=== PATIENT | female | born 1985 | race Caucasian/White ===

== ENCOUNTER 2023-02-27 08:16 | Inpatient (IN) | payer BC ==
[~2023-02-27] VITALS: Ht 162.6 cm; Wt 115.5 kg
[2023-04-08] MEDS ORDERED: Scopolamine 1 MG Delivered 3-Day PATCH TD SCH (12:00)
[2023-04-08] MEDS ORDERED: Metoclopramide 10 MG TAB PO SCH (12:00)
[2023-04-08] MEDS ORDERED: Meclizine 25 MG TAB PO SCH (12:00)
[2023-04-09] VITALS (15 sets, daily range): BP systolic 111–139; BP diastolic 69–83; PULSE 64–82; TEMP 97.3–99.3
[2023-04-09] MEDS ORDERED: LR 1,000 ML IV SCH (06:00)
[2023-04-09] MEDS ORDERED: QULIPTA60 MG PO (06:02)
[2023-04-09] MEDS ORDERED: Ondansetron 4 MG/2 ML VIAL ONE (06:42)
[2023-04-09] MEDS ORDERED: dexAMETHasone 10 MG/ML VIAL ONE (06:42)
[2023-04-09] MEDS ORDERED: Lidocaine PF 2% (20 MG/ML) 5 ML VIAL ONE (06:42)
[2023-04-09] MEDS ORDERED: Rocuronium 50 MG/5 ML Multi-Dose VIAL ONE ×3 (06:43→07:59)
[2023-04-09] MEDS ORDERED: Succinylcholine PF 100 MG/5 ML SYRINGE/POLY AMP IV ONE (06:43)
[2023-04-09] MEDS ORDERED: fentaNYL 50 MCG/ML 2 ML VIAL ONE ×2 (06:44→09:49)
[2023-04-09] MEDS ORDERED: Ondansetron 4 MG/2 ML VIAL IV PRN ×2 (08:00→10:00)
[2023-04-09] MEDS ORDERED: fentaNYL 50 MCG/ML 2 ML VIAL IV PRN (08:00)
[2023-04-09] MEDS ORDERED: HYDROmorphone 2 MG/1 ML VIAL IV PRN (08:00)
[2023-04-09] MEDS ORDERED: oxyCODONE Oral Soln 5 MG/5 ML UD PO PRN (10:00)
[2023-04-09] MEDS ORDERED: HYDROmorphone 0.5 MG/0.5 ML SYRINGE IV PRN (10:00)
[2023-04-09] MEDS ORDERED: D5 1/2 NS & 20 mEq KCl 1,000 ML IV SCH (10:00)
[2023-04-09] MEDS ORDERED: diphenhydrAMINE 25 MG CAP PO PRN (10:00)
[2023-04-09] MEDS ORDERED: Naloxone 0.4 MG/ML VIAL IV PRN (10:00)
[2023-04-09] MEDS ORDERED: diphenhydrAMINE 50 MG/ML 1 ML VIAL IV PRN (10:00)
[2023-04-09] MEDS ORDERED: Ketorolac 30 MG/ML VIAL IV PRN (10:15)
[2023-04-09] MEDS ORDERED: droPERidol 2.5 MG/ML 2 ML VIAL IV PRN ×2 (10:15)
[2023-04-09] MEDS ORDERED: Acetaminophen Oral Susp 325 MG/10.15 ML UD PO SCH (10:49)
--- NOTE | 2023-04-09 10:55 | NUR ---
REPORT RECEIVED FROM PACU. PT UP TO FLOOR AT THIS TIME. PT VERY DROWSY, VITALS STABLE, COMPLAINING OF NO PAIN, BANDAIDS TO 5 LAP SITES CLEAN AND DRY, MIGUEL ÁNGEL DRAIN INTACT AND DRAINING SANGINOUS. FAMILY AT BEDSIDE. PT REMAINS ON 2L O2 AND NPO. WILL CONTINUE TO MONTIOR.
--- NOTE | 2023-04-09 20:00 | NUR ---
report received from mary akins. pt resting in bed with at bedside. pt reporting minimal pain. pt requesting to walk later. call light in reach. all needs met at this time.
[2023-04-09] MEDS ORDERED: Sennosides/Docusate 8.6-50 MG TAB PO SCH (21:00)
--- NOTE | 2023-04-09 21:09 | NUR ---
shift assessment complete, see documentation. pt ambulated with and staff assist. pt had steady ambulation. pt reporting increased pain rated 7/10. prn dilaudid administered per orders. pt now resting in bed with at bedside. call light in reach. all needs met at this time.
--- NOTE | 2023-04-09 23:48 | NUR ---
pt reporting increased abd pain rated 7/10. prn dilaudid administered per orders. call light in reach. all needs met at this time.
[2023-04-10] VITALS (11 sets, daily range): BP systolic 100–131; BP diastolic 68–76; PULSE 61–77; TEMP 97.4–98.3
--- NOTE | 2023-04-10 02:20 | NUR ---
pt reporting increased abd pain rated 5/10. prn dilaudid administered per orders. call light in reach. all needs met at this time.
--- NOTE | 2023-04-10 05:59 | NUR ---
pt reporting increased abd pain rated 7/10 along with nausea. prn dilaudid and zofran administered per orders. call light in reach. all needs met at this time.
[2023-04-10 06:58] LABS: BASO % 0.1 % (0.0-2.0); EOS % 0.1 % (0.0-4.0); GRAN # 9.8 K/mm3 (1.4-6.5); GRAN % 81.3 % (42.2-75.2); HEMATOCRIT 43.1 % (37.0-47.0); HEMOGLOBIN 14.8 g/dl (12.5-16.0); LYMPH # 1.1 K/mm3 (1.2-3.4); LYMPH % 9.4 % (20.0-51.0); MEAN CELL VOLUME 91 fl (80.0-100.0); MEAN CORPUSCULAR HEMOGLOBIN 31 pg (27-31); MEAN CORPUSCULAR HGB CONC 34 g/dl (33.0-37.0); MEAN PLATELET VOLUME 10.6 fl (7.4-10.4); MONO # 1.1 K/mm3 (0.1-0.6); MONO % 8.8 % (1.7-9.3); PLATELET COUNT 282 K/mm3 (130-400); RED BLOOD COUNT 4.75 M/mm3 (4.10-5.30); REDCELL DISTRIBUTION WIDTH-CV 12.6 % (11.5-14.5)
[2023-04-10 07:30] LABS: ALBUMIN 3.5 gm/dL (3.5-5.0); BILIRUBIN,TOTAL 0.4 mg/dL (0.2-1.2); CALCIUM 9.2 mg/dL (8.4-10.2); CREATININE, serum 0.75 mg/dL (0.57-1.11); POTASSIUM 4.2 mmol/L (3.5-4.5); TOTAL PROTEIN 6.4 gm/dL (6.2-8.1)
--- NOTE | 2023-04-10 07:46 | NUR ---
Vital signs taken, all WNL. Pain is at a 2 unless moving. Pt was not in need of anything at this time.
--- NOTE | 2023-04-10 07:49 | NUR ---
Report received from JAN Green. Awaiting time for pt procedure. Pt is NPO until then.
--- NOTE | 2023-04-10 08:00 | NUR ---
PATIENT IS A&O. VSS. C/O ABD PAIN RATED AT 4-5 ON PAIN SCALE AND PATIENT REQUESTING SOMETHING FOR PAIN. GAVE PRN IV DILAUDID. PATIENT NPO FOR SWALLOW STUDY THIS AM AROUND 1100 PER RADIOLOGY. IV FLUIDS INFUSING VIA PUMP INTO LEFT AC IV. NO C/O N/V AT THIS TIME. BOWL SOUNDS HYPO ACTIVE. ABD LAP SITES X5 ARE CD&I WITH BANDAIDS. RONIT DRAIN TO COMPRESSION, EMPTIED 40CC OF BLOODY DRAINAGE. ELLIS TO DD WITH MOD AMOUNTS OF YELLOW URINE NOTED. HEAD TO TOE ASSESSMENT COMPLETE. STUDENT NURSE WORKING WITH PATIENT TODAY, SEE CHARTING. AT BEDSIDE. NO OTHER NEEDS AT THIS TIME. CALL LIGHT IN REACH.
--- NOTE | 2023-04-10 08:46 | NUR ---
Pt was assisted on a walk. the walk was tolerated well. After pt had a pain of 4 and requested pain meds. JAN Green was notified. A head to toe assessment was complete.Pt was not in need of anything else.
[2023-04-10] MEDS ORDERED: Pantoprazole 40 MG in NS 10 ML IV SCH (09:00)
--- NOTE | 2023-04-10 09:10 | NUR ---
farmworker fryer farm met with pt to discuss discharge planning. Pt reports she lives in [place], [place] with her , Baldev [phone] and children. She sees Dr. Willis and obtains medications from [facility] with no difficulties. She is independent with ADLS and uses no DME. She does not have a DPOA-HC and declined one at this time. She intends to return home upon discharge. Discharge Plan: Home
--- NOTE | 2023-04-10 11:57 | NUR ---
Pt requested pain meds. Notified RN Norma. VS taken. Reported off to JAN Green
--- NOTE | 2023-04-10 12:15 | NUR ---
PATIENT SWALLOW STUDY WAS GOOD. DIET ADVANCED TO CLEARS. PATIENT REQUESTING PAIN MEDS, GAVE PRN PO MATTHEW.
--- NOTE | 2023-04-10 13:16 | NUR ---
D: Initial visit: Political Analyst stopped by room on rounds. Pt was resting and content with in the room. A: Pt stated she has no needs right now. They live in [place]. P: Political Analyst informed pt that if she needed anything from the log handler area to let her nurse know. Political Analyst will follow up as needed.
--- NOTE | 2023-04-10 15:00 | NUR ---
REPORT RECEIVED FROM JAN BOO
--- NOTE | 2023-04-10 17:50 | NUR ---
ELLIS DISCONTINUED, PT TOLERATED WELL. 9MLS OF WATER REMOVED FROM BALLOON AND CATHETER TIP INTACT. PT DENIES NEEDS AT THIS TIME. BED IN LOWEST POSITION, CALL LIGHT IN REACH
--- NOTE | 2023-04-10 20:16 | NUR ---
PT STABLE. STATES SHE WILL WALK WITH HER SPOUSE IN THE [place] LATER TONIGHT. NO SIGN OF DISTRESS AT THIS TIME.
[2023-04-11 01:00] VITALS: BP_SYST 116
[2023-04-11 03:46] VITALS: BP 122/73; PULSE 72; TEMP 98.2
[2023-04-11 05:00] VITALS: BP_SYST 122
--- NOTE | 2023-04-11 07:09 | NUR ---
REMAINS STABLE ROUNDS. AT BEDSIDE. PT STATES SHE FEELS BETTER WHEN SHE IS AMBULATING. HAS BEEN ASSISTING HER WITH AMBULATION IN HALLS. NAUSEA THIS MORNING AFTER DRAIN EMPTIED. SEROSANGUINEOUS DRAINAGE FROM RONIT. SAMPLE SENT FOR AMYLASE. NO SIGN OF DISTRESS AT THIS TIME.
--- NOTE | 2023-04-11 07:10 | NUR ---
Shift report received from JAN Huerta
[2023-04-11 07:58] VITALS: BP 122/70; PULSE 71; TEMP 97.9
--- NOTE | 2023-04-11 08:55 | NUR ---
PT RESTING IN BED WITH PAIN 3/10 IN ABDOMEN AT THIS TIME. PT A/O X4, STEADY GIAT, NO EDEMA, SCD'S IN PLACE, BANDAID DRESSINGS CLEAN AND DRY. TOLERATING FULL LIQUID DEIT WELL. WILL CONTINUE TO MONITOR.
--- NOTE | 2023-04-11 11:05 | NUR ---
Pt took a walk down the hallway assisted by . Pt was given scheduled tylenol for pain.
[2023-04-11 11:51] VITALS: BP 123/68; PULSE 74; TEMP 97.6
--- NOTE | 2023-04-11 11:52 | NUR ---
reported off to primary nurse Marci MONTOYA
[2023-04-11 12:17] VITALS: BP_SYST 123
[2023-04-11] MEDS ORDERED: TYLENOL 500MG500 MG PO (14:17)
[2023-04-11] MEDS ORDERED: ROXICODONE 55 MG/TAB PO (14:17)
[2023-04-11] MEDS ORDERED: ZOFRAN 4MG T4 MG/TAB PO (14:17)
[2023-04-11] MEDS ORDERED: PROTONIX 40MG T40 MG PO (14:18)
--- NOTE | 2023-04-11 15:13 | NUR ---
PT AND FAMILY PROVIDED DISCHARGE INSTRUCTIONS. DISCUSSED FOLLOW UP APPOINTMENTS, NEW MEDICATIONS, SIGNS OF INFECTION, DISCHARGE DIET, AND INCISION CARE. NO QUESTIONS AT THIS TIME. IV REMOVED. PT AND BELONGINGS ESCORTED OUT OF BUILDING VIA WHEELCHAIR.
== END 2023-04-11 15:00 | disposition home or self-care (01) | DRG 621 ==
LOC: INPTSU 04-09 05:23 → SURG 04-09 05:23
PROVIDERS: ADMIT Surgery
PROC: 8E0W4CZ Robotic Assisted Procedure of Trunk Region, Percutaneous Endoscopic Approach (ICD-10-PCS; 2023-04-09)
PROC: 0D164ZA Bypass Stomach to Jejunum, Percutaneous Endoscopic Approach (ICD-10-PCS; principal; 2023-04-09 07:30)
DX: E66.01 Morbid (severe) obesity due to excess calories (principal); E28.2 Polycystic ovarian syndrome; R73.03 Prediabetes; G43.909 Migraine, unspecified, not intractable, without status migrainosus; F32.A Depression, unspecified; Z98.51 Tubal ligation status; Z68.42 Body mass index [BMI] 45.0-49.9, adult; Z90.49 Acquired absence of other specified parts of digestive tract; Z87.891 Personal history of nicotine dependence
CPT/HCPCS: A4314; C9113; J0330; J1100; J1170; J1650; J1790; J1956; J2405; J2704; J3010; J3480; J7120